=== PATIENT | male | born 1995 ===

== ENCOUNTER 2017-09-24 10:07 | Emergency (ER) | payer MEDICAID, OTHER ==
[2017-09-24 10:08] VITALS: BMI 34.8
[2017-09-24 10:49] VITALS: BP 149/79; PULSE 100; RESP 20; TEMP 97.8; O2SAT 99
[2017-09-24] MEDS ORDERED: Naproxen 500 MG TAB PO ONE (11:36)
--- NOTE | 2017-09-24 11:48 | ED PDOC ---
HPI: General Adult Time Seen by Provider: 09/24/17 10:35 Chief Complaint (Nursing): Lower Extremity Problem/Injury History Per: Patient Additional Complaint(s): Pt. 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 Since then he's had progressively worsening R great toe pain and bruising. Denies numbness, tingling , other injury. Past Medical History Reviewed: Historical Data, Nursing Documentation, Vital Signs Vital Signs: Last Vital Signs Temp 97.8 F 09/24/17 10:41 Pulse 100 H 09/24/17 10:41 Resp 20 09/24/17 10:41 BP 149/79 09/24/17 10:41 Pulse Ox 99 09/24/17 14:31 - Medical History PMH: Denies: Chronic Kidney Disease - Surgical History Surgical History: No Surg Hx - Family History Family History: States: No Known Family Hx - Home Medications Home Medications: Ambulatory Orders Medication Instructions Recorded Ibuprofen [Motrin Tab] 800 mg PO Q8 PRN #30 tab 09/24/17 - Allergies Allergies/Adverse Reactions: Allergies Allergy/AdvReac Type Severity Reaction Status Date / Time No Known Allergies Allergy Verified 09/24/17 10:41 Review of Systems ROS Statement: Except As Marked, All Systems Reviewed And Found Negative Musculoskeletal: Negative for: Foot Pain Physical Exam - Physical Exam Appears: Positive for: Well, Non-toxic, No Acute Distress Skin: Positive for: Normal Color, Warm. Negative for: Rash Pulses-Dorsalis Pedis (R): 2+ Extremity: Positive for: Capillary Refill (< 2 seconds on R great toe), Other ( R great toe with ecchymosis, tenderness, and swelling without deformity and with limited ROM secondary to pain; R great toe distal sensation is intact and equal). Negative for: Pedal Edema (b/l) Neurologic/Psych: Positive for: Alert, Oriented. Negative for: Aphasia - ECG O2 Sat by Pulse Oximetry: 99 - Radiology X-Ray: Interpreted by Me (R great toe x-ray) X-Ray Interpretation: Other (comminuted fx at the medial side of the proximal portion of the distal phalanx without displacement) - Progress ED Course And Treament: Naproxen 500mg PO, R great toe x-ray ordered. Pt. evaluated by Silvia, podiatry resident, who spoke with Dr. Mohamud and cleared pt. for discharge with f/u with podiatry clinic. Pt.'s toe was immobilized in ED by podiatry resident. Disposition - Clinical Impression Clinical Impression: Toe fracture - Patient ED Disposition Is Patient to be Admitted: No - Disposition Referrals: Podiatry Clinic [Outside] [facility] [Outside] Disposition: Routine/Home Disposition Time: 14:28 Condition: STABLE Additional Instructions: Follow up with podiatry clinic as previously discussed and scheduled without fail. Prescriptions: Ibuprofen [Motrin Tab] 800 mg PO Q8 PRN #30 tab PRN Reason: pain Instructions: Toe Fracture (DC) Forms: [employer] (Italian), [facility] ED School/Work Excuse Print Language: CHINESE
--- NOTE | 2017-09-24 12:40 | RAD ---
PROCEDURE: Radiographs of the right great toe. TECHNIQUE:: AP radiograph of the right foot, with oblique and lateral view of the right great toe. COMPARISON: None. FINDINGS: BONES: There is an apparent intra-articular fracture involving the lateral aspect base proximal phalanx right great toe with overlying dorsal soft tissue swelling JOINTS: As above SOFT TISSUES: As above. OTHER FINDINGS: None. IMPRESSION: There is an apparent intra-articular fracture involving the lateral aspect base proximal phalanx right great toe with overlying dorsal soft tissue swelling. Note that this report was placed in PA review folder for followup
--- NOTE | 2017-09-24 14:00 | CP.PCM.CON ---
History of Present Illness - History of Present Illness History of Present Illness: Podiatry Consult Note for Dr. Mohamud 22 y.o male with no PMH seen and evaluated in the ED for right great toe pain. Patient reports that on 09/22/17, he fell while doing chin ups on the bars. Patient reports that his hands slipped, and he fell and hit his big toe. He reports his ankles did not twist or get injured. He rates his pain 6/10 today and describes the pain as a throbbing, constant pain at the big toe. Denies pain radiating. Patient reports that the pain has gotten much better since Sunday but the bruising appears worse. He also reports swelling to the right big toe. Patient denies nausea, fever, shortness of breathe, chills or fever. Patient ambulates to the ED today wearing shoes and is present with his mother. PMH: none PSH: tonsiolectomy, cyst removed from mouth ALL: NKDA MEDS: none FH: mother- hypothyroidism, grandparents: DM and HTN SH: denies smoking or illicit drug use, reports socially drinking EtOH Past Patient History - Past Medical History & Family History Past Medical History?: Yes - Past Social History Smoking Status: Never Smoked - CARDIAC Hx Cardiac Disorders: No - PULMONARY Hx Respiratory Disorders: No - NEUROLOGICAL Hx Neurological Disorder: No - HEENT Hx HEENT Problems: Yes Other/Comment: PT. FOR SURGERY 12/10/15-DX: HYPERTROPHIC TONSILS AND ADENOIDS. - RENAL Hx Chronic Kidney Disease: No - ENDOCRINE/METABOLIC Hx Endocrine Disorders: No - HEMATOLOGICAL/ONCOLOGICAL Hx Blood Disorders: No - INTEGUMENTARY Hx Dermatological Problems: No - MUSCULOSKELETAL/RHEUMATOLOGICAL Hx Musculoskeletal Disorders: No - GASTROINTESTINAL Hx Gastrointestinal Disorders: No - GENITOURINARY/GYNECOLOGICAL Hx Genitourinary Disorders: No - PSYCHIATRIC Hx Psychophysiologic Disorder: No Hx Substance Use: (Denies) - SURGICAL HISTORY Hx Surgeries: No - ANESTHESIA Hx Anesthesia: Yes Hx Anesthesia Reactions: No Meds Home Medications: Home Medication List Medication Instructions Recorded Confirmed Type Ibuprofen [Motrin Tab] 800 mg PO Q8 PRN #30 tab 09/24/17 Rx Allergies/Adverse Reactions: Allergies Allergy/AdvReac Type Severity Reaction Status Date / Time No Known Allergies Allergy Verified 09/24/17 10:41 Physical Exam - Constitutional Appears: Well, Non-toxic, No Acute Distress - Extremities Exam Extremities exam: Negative for: calf tenderness Additional comments: Vasc: DP and PT 2/4 bilaterally, CFT < 3 seconds x10 digits, localized nonpitting edema noted to the right hallux, digit hair present Ortho: moderate pain to palpation to the right hallux, moderate pain with hallux dorsiflexion and plantarflexion, able to wiggle toes, no pain with palpation to the ankle Neuro: protective and gross sensation intact Derm: ecchymoisis noted to the medial aspect of the hallux and dorsum aspect hallux proximal to the nail plate, no hematoma, nail plate 100% adhere to the nail bed with no lifting, no open lesions, no drainage, no clinical signs of infection - Neurological Exam Neurological exam: Alert, Oriented x3 - Psychiatric Exam Psychiatric exam: Normal Affect, Normal Mood Results - Vital Signs Recent Vital Signs: Last Vital Signs Temp 97.8 F 09/24/17 10:41 Pulse 100 H 09/24/17 10:41 Resp 20 09/24/17 10:41 BP 149/79 09/24/17 10:41 Pulse Ox 99 09/24/17 12:07 Assessment & Plan - Assessment and Plan (Free Text) Assessment: 22 y.o male with no PMH seen and evaluated in the ED for right hallux contusion and right hallux fracture secondary to trauma Plan: Patient examined and evaluated Discussed the plan in detail with attending Dr. Mohamud Labs, vitals charts reviewed X-rays of the right foot- impression- apparent intra-articular fracture involving the lateral aspect base proximal phalanx right great toe with overlying dorsal soft tissue swelling Waqas splint hallux to 2nd digit Patient instructed to RICE therapy Patient instructed to WBAT in surgical to the heels Patient will followup in clinic on Sunday with Dr. Mohamud Pt instructed to call [facility] podiatry clinic for appointment Thank you for allowing us to take part in patient's care
== END 2017-09-24 15:40 | disposition home or self-care (01) ==
LOC: H.ER 10:07
DX: S92.411A Displaced fracture of proximal phalanx of right great toe, initial encounter for closed fracture (principal); W01.0XXA Fall on same level from slipping, tripping and stumbling without subsequent striking against object, initial encounter; Y92.89 Other specified places as the place of occurrence of the external cause; Z83.3 Family history of diabetes mellitus

== ENCOUNTER 2018-11-25 14:23 | Emergency (ER) | payer MEDICAID, OTHER ==
[2018-11-25 14:24] VITALS: BMI 34.8
[2018-11-25 15:18] VITALS: RESP 16; TEMP 98; O2SAT 99
[2018-11-25] MEDS ORDERED: Sodium Chloride 0.9% 1,000 ML IV STA (17:06)
--- NOTE | 2018-11-25 17:27 | ED PDOC ---
HPI: Abdomen Time Seen by Provider: 11/25/18 16:44 Chief Complaint (Nursing): Abdominal Pain Chief Complaint (Provider): abdominal pain History Per: Patient History/Exam Limitations: no limitations Onset/Duration Of Symptoms: Days Location Of Pain/Discomfort: Epigastric Quality Of Discomfort: Sharp, Cramping Associated Symptoms: denies: Fever, Chills, Nausea, Vomiting, Diarrhea Additional Complaint(s): Pt. is a healthy 23 y/o Male who reports 3 d. history of intermittent upper abdominal pain, described as sharp and mild. He denies any associated n/v/d, fevers. He reports appetite has been good. Past Medical History Vital Signs: Last Vital Signs Temp 98.0 F 11/25/18 15:17 Pulse 83 11/25/18 15:17 Resp 16 11/25/18 15:17 BP 133/81 11/25/18 15:17 Pulse Ox 99 11/25/18 15:17 Primary Care Provider: Shaik Adair - Medical History PMH: No Chronic Diseases Denies: Chronic Kidney Disease - Surgical History Surgical History: No Surg Hx - Family History Family History: States: Unknown Family Hx - Home Medications Home Medications: Ambulatory Orders Medication Instructions Recorded Ibuprofen [Motrin Tab] 800 mg PO Q8 PRN #30 tab 09/24/17 Famotidine [Pepcid] 20 mg PO DAILY #30 tab 11/25/18 - Allergies Allergies/Adverse Reactions: Allergies Allergy/AdvReac Type Severity Reaction Status Date / Time No Known Allergies Allergy Verified 11/25/18 15:16 Review of Systems Constitutional: Negative for: Fever, Chills, Sweats Cardiovascular: Negative for: Chest Pain Respiratory: Negative for: Cough Gastrointestinal: Negative for: Nausea, Vomiting Physical Exam - Physical Exam Appears: Positive for: Well, Non-toxic Head Exam: Positive for: ATRAUMATIC Skin: Positive for: Normal Color, Warm, Dry Eye Exam: Positive for: Normal appearance Cardiovascular/Chest: Positive for: Regular Rate, Rhythm Respiratory: Positive for: Normal Breath Sounds Gastrointestinal/Abdominal: Positive for: Soft, Tenderness (mild epigastric). Negative for: Mass, Distended, Guarding Neurological/Psych: Positive for: Awake, Alert, Normal Tone - Laboratory Results Result Diagrams: 11/25/18 17:28 11/25/18 17:28 - ECG O2 Sat by Pulse Oximetry: 99 Medical Decision Making Medical Decision Making: IV access established IVF cbc, cmp, lipase IV Pepcid IV Toradol At initiation of IV start, pt. felt nauseous, doesn't like needles. IV Zofran given. Reassessment, pt. reports feeling markedly improved. Re-exam, abdomen is soft/nt. Pt. is tolerating po. Disposition - Clinical Impression Clinical Impression: Abdominal pain - Patient ED Disposition Is Patient to be Admitted: No - Disposition Referrals: [facility] [Outside] Disposition: Routine/Home Disposition Time: 18:52 Condition: STABLE Prescriptions: Famotidine [Pepcid] 20 mg PO DAILY #30 tab Instructions: Acute Abdomen (Belly Pain), Adult (DC) Forms: [facility] (Korean)
[2018-11-25 17:38] LABS: BASO % 0.2 % (0.0-2.0); EOS # 0.1 K/uL (0.0-0.7); EOS % 0.5 % (0.0-4.0); HEMOGLOBIN 16.9 g/dL (12.0-18.0); LYMPH # 2.2 K/uL (1.0-4.3); LYMPH % 19.3 % (20.0-40.0); MEAN CELL VOLUME 81.7 fl (80.0-94.0); MEAN CORPUSCULAR HEMOGLOBIN 27.4 pg (27.0-31.0); MEAN CORPUSCULAR HGB CONC 33.5 g/dL (33.0-37.0); MEAN PLATELET VOLUME 7.1 fl (7.2-11.7); MONO # 0.9 K/uL (0.0-0.8); MONO % 8.1 % (0.0-10.0); NEUT # 8.3 K/uL (1.8-7.0); NEUT % 71.9 % (50.0-75.0); RBC 6.19 Mil/uL (4.40-5.90); RED CELL DISTRIBUTION WIDTH 14.5 % (11.5-14.5); WHITE BLOOD COUNT 11.5 K/uL (4.8-10.8)
[2018-11-25 17:42] LABS: ALB/GLOB RATIO 1.4 (1.0-2.1); ALBUMIN 4.7 g/dL (3.5-5.0); BLOOD UREA NITROGEN 18 mg/dl (9-20); CALCIUM 9.5 mg/dL (8.4-10.2); GFR NON-AFRICAN AMERICAN > 60; LIPASE 69 U/L (23-300)
[2018-11-25 17:53] LABS: ALT/SGPT 22 U/L (21-72); AST/SGOT 29 U/L (17-59)
[2018-11-25 19:15] VITALS: BP 125/72; PULSE 75
== END 2018-11-25 18:53 | disposition home or self-care (01) ==
LOC: H.ER 14:23
DX: R10.13 Epigastric pain (principal)
CPT/HCPCS: 80053; 83690; 85025; 96361; 96374; 96375; 99283; J1885; J2405; J7030